=== PATIENT | female | born 1975 | race Hispanic/Latino ===

== ENCOUNTER → 2017-02-14 | Outpatient (CLI) | payer OTHER ==
--- NOTE | 2017-02-14 15:49 | US ---
Procedure: US GALLBLADDER Exam Date: 02/14/2017 Ordering Provider: FERMIN MAN Clinical Indication: RUQ PAIN Comparison: None Technique: Real-time ultrasonography was obtained over the right upper quadrant and sales representative livestock images were recorded. Findings: There are no shadowing gallstones within the gallbladder lumen. There is suggestion of sludge. There is no gallbladder wall thickening or pericholecystic fluid. The gallbladder is normal in size and contour. Negative Vargas's. There is a 11.6 mm hyperechoic lesion within the gallbladder which could be mural based although this is incompletely evaluated. The extrahepatic common duct is normal in size measuring 3.8 mm. The liver is normal in size and contour. There is normal echogenicity throughout the liver. There is no hepatic mass. There is no intrahepatic ductal dilatation. There is no ascites. Impression: 1. Gallbladder sludge without findings to suggest acute cholecystitis. 2. There is an 11.6 mm lesion within the gallbladder which could represent a polyp although this is incompletely evaluated. Patient should be recalled for further evaluation of the gallbladder with color Doppler and cine imaging. If this is confirmed as a polyp of this size surgical consultation would be recommended. Electronically signed by: Jarad Sheikh MD 02/14/2017 3:49 PM CDT
== END | disposition home or self-care (01) ==
LOC: US 08:29
PROVIDERS: ATTEND Family Medicine
DX: R10.11 Right upper quadrant pain (principal)